=== PATIENT | male | born 1955 | race Native Hawaiian/Other Pacific Islander ===

== ENCOUNTER 2016-10-22 05:01 | Outpatient (CLI) | payer BC | END 2016-10-22 06:29 | disposition short-term general hospital (02) | LOC: AMB 05:01 | DX: R07.89 Other chest pain (principal) | CPT/HCPCS: A0425; A0427 ==

== ENCOUNTER 2021-04-11 11:14 | Outpatient (CLI) | payer OTHER ==
[2021-04-11 11:32] LABS: PLATELET COUNT 212 K/uL (142-355)
[2021-04-11 11:39] LABS: POTASSIUM 4.4 mmol/L (3.6-5.2)
== END 2021-04-11 21:36 | disposition home or self-care (01) ==
LOC: LABW 11:14
PROVIDERS: ATTEND Specialist
DX: R94.39 Abnormal result of other cardiovascular function study (principal); Z01.810 Encounter for preprocedural cardiovascular examination
CPT/HCPCS: 36415; 80053; 85027

== ENCOUNTER 2022-04-02 10:46 | Outpatient (CLI) | payer OTHER | END 2022-04-02 19:01 | disposition home or self-care (01) | LOC: RAD 10:46 | PROVIDERS: ATTEND Physician Assistant | DX: M54.50 Low back pain, unspecified (principal) ==

== ENCOUNTER 2022-07-03 11:57 | Outpatient (CLI) | payer OTHER | END 2022-07-03 19:35 | disposition home or self-care (01) | LOC: MRI 11:57 | PROVIDERS: ATTEND Physician Assistant | DX: M54.59 Other low back pain (principal) ==

== ENCOUNTER 2022-08-02 08:59 | Outpatient (CLI) | payer OTHER | END 2022-08-02 19:48 | disposition home or self-care (01) | LOC: RAD 08:59 | PROVIDERS: ATTEND Anesthesiology | DX: M25.552 Pain in left hip (principal) ==

== ENCOUNTER 2023-02-28 15:55 | Outpatient (CLI) | payer OTHER | END 2023-02-28 19:22 | disposition home or self-care (01) | LOC: RAD 15:55 | PROVIDERS: ATTEND Nurse Practitioner Family | DX: R05.9 Cough, unspecified (principal) ==

== ENCOUNTER 2023-03-20 07:46 | Outpatient (CLI) | payer OTHER | END 2023-03-20 18:57 | disposition home or self-care (01) | LOC: CT 07:46 | PROVIDERS: ATTEND Nurse Practitioner Family | DX: R93.89 Abnormal findings on diagnostic imaging of other specified body structures (principal); R05.9 Cough, unspecified | CPT/HCPCS: 36415; 82565; 84520; Q9963 ==

== ENCOUNTER 2023-04-04 14:07 | Outpatient (CLI) | payer OTHER | END 2023-04-04 19:25 | disposition home or self-care (01) | LOC: LABW 14:07 | PROVIDERS: ATTEND Internal Medicine Sleep Medicine | DX: J84.89 Other specified interstitial pulmonary diseases (principal) | CPT/HCPCS: 36415; 82164; 82550; 83516; 85652; 86037; 86038; 86225; 86235; 86331; 86431; 86602; 86606; 86671 ==

== ENCOUNTER 2023-05-14 09:10 | Outpatient (CLI) | payer OTHER | END 2023-05-14 19:11 | disposition home or self-care (01) | LOC: CT 09:10 | PROVIDERS: ATTEND Internal Medicine Sleep Medicine | DX: R22.1 Localized swelling, mass and lump, neck (principal) | CPT/HCPCS: 36415; 82565; 84520; Q9963 ==

== ENCOUNTER 2023-11-05 12:53 | Outpatient (CLI) | payer OTHER | END 2023-11-05 19:09 | disposition home or self-care (01) | LOC: RAD 12:53 | PROVIDERS: ATTEND Nurse Practitioner Family | DX: M54.10 Radiculopathy, site unspecified (principal) ==